=== PATIENT | female | born 1950 | race Caucasian/White ===

== ENCOUNTER 2019-04-19 12:20 | Emergency (ER) | payer MEDICARE ==
--- NOTE | 2019-04-19 13:52 | ED ---
General Adult HPI - General Chief complaint: Fall Stated complaint: fall, facial injury Time Seen by Provider: 04/19/19 12:30 Source: patient, EMS Mode of arrival: EMS Limitations: no limitations - History of Present Illness Initial comments: Dictation was produced using Snapflow dictation software. please excuse any grammatical, word or spelling errors. Chief Complaint: 68-year-old female presents with head injury after fall. History of Present Illness: An is a 68-year-old female she presents with head injury after fall. Patient states she was walking on sidewalk. It was a brick paved road when she tripped over on uneven brick. Patient was around the library when she was told to come to the emergency department for evaluation. Patient had any blood thinners. She does complain of some soreness around the lateral right eyebrow. Denies any neck pain. The ROS documented in this emergency department record has been reviewed and confirmed by me. Those systems with pertinent positive or negative responses have been documented in the HPI. All other systems are other negative and/or noncontributory. PHYSICAL EXAM: General Impression: Alert and oriented x3, not in acute distress HEENT: Small 5 x 5 mm ecchymoses over the right lateral eyebrow, extra-ocular movements intact, pupils equal and reactive to light bilaterally, mucous membranes moist. Cardiovascular: Heart regular rate and rhythm, S1&S2 audible, no murmurs, rubs or gallops Chest: Lungs clear to auscultation bilaterally, no rhonchi, no wheeze, no rales Abdomen: Bowel sounds present, abdomen soft, non-tender, non-distended, no organomegaly Musculoskeletal: Pulses present and equal in all extremities, no peripheral edema Motor: no focal deficits noted Neurological: CN II-XII grossly intact, no focal motor or sensory deficits noted Skin: Intact with no visualized rashes Psych: Normal affect and mood ED course: 68 Old female presents with head trauma after mechanical fall. Patient is well-appearing at this time. She has small very little evidence of head trauma on external examination. Vital signs upon arrival are within accept able limits. Computed tomography scan of the head and C-spine obtained showing no acute processes. Patient reevaluated at bedside currently stable medical condition. Patient has no pain at this time. She has no neuro deficits. She'll be discharged with instruction to follow up with primary care physician. Prevacid discussed. Patient understandable and agreeable with disposition plan - Related Data Home Medications Medication Instructions Recorded Confirmed Atorvastatin Calcium [Lipitor] 40 mg PO TH 04/19/19 04/19/19 Thyroid,Pork [[place] Thyroid] 15 mg PO DAILY 04/19/19 04/19/19 Allergies Allergy/AdvReac Type Severity Reaction Status Date / Time bee pollen Allergy Unknown Verified 04/19/19 14:51 egg yolk Allergy Rash/Hives Verified 04/19/19 14:51 procaine Allergy Unknown Verified 04/19/19 14:51 wheat AdvReac Unknown Verified 04/19/19 14:51 Review of Systems ROS Statement: Those systems with pertinent positive or pertinent negative responses have been documented in the HPI. ROS Other: All systems not noted in ROS Statement are negative. Past Medical History Past Medical History: Hyperlipidemia, Thyroid Disorder History of Any Multi-Drug Resistant Organisms: None Reported Past Surgical History: Tonsillectomy Past Psychological History: No Psychological Hx Reported Smoking Status: Never smoker Past Alcohol Use History: None Reported Past Drug Use History: None Reported General Exam Limitations: no limitations Course Vital Signs 04/19/19 12:28 Temperature 98.3 F Pulse Rate 73 Respiratory 18 Rate Blood Pressure 169/91 O2 Sat by Pulse 98 Oximetry Disposition Clinical Impression: Head contusion Disposition: HOME SELF-CARE Condition: Good Instructions (If sedation given, give patient instructions): Fall Prevention for Older Adults (ED) Is patient prescribed a controlled substance at d/c from ED?: No Referrals: Idania Case DO [Primary Care Provider] - 1-2 days Time of Disposition: 15:08
--- NOTE | 2019-04-19 14:49 | CT ---
EXAMINATION TYPE: CT brain trace carlson DATE OF EXAM: 04/19/2019 COMPARISON: None HISTORY: 68-year-old female with pain after Fall today with Right supra orbital injury CT DLP: 1213.8 mGycm Automated exposure control for dose reduction was used. Technique: Examination of the head was done in axial plane without intravenous contrast. Coronal and sagittal reconstructions performed. CT of the cervical spine was obtained in axial plane without intravenous injection of contrast mater ial. Coronal and sagittal reformatted images were obtained from the axial views for evaluation of f ractures, spinal alignment and canal. FINDINGS: Head: There is no evidence of acute intracranial hemorrhage, acute ischemic changes, mass, mass-effect, or extra-axial fluid collection. There is no effacement of cerebral sulci or basal subarachnoid cister ns. There is no hydrocephalus. There is no midline shift. Yo-white matter distinction is preserv ed. Paranasal sinuses and mastoid air cells well pneumatized. Orbits and globes are intact. No calvarial fracture. Cervical spine: No cranial cervical junction of the body, predental space widening, or prevertebral soft tissue swell ing. Degenerative changes of the C1 dens articulation. Straightening of the normal cervical lordosis. Grade 1 anterolisthesis at C3-C4 and C7-T1. Moderate to advanced discussion plate degenerative change mid to lower cervical spine. Additional sca ttered facet and uncovertebral joint arthropathy. No acute fracture of the cervical spine. Sagittal and coronal reformatted images confirm above findings. COMBINED IMPRESSION: 1. No acute intracranial abnormality seen. 2. No acute fracture of the cervical spine. Moderate spondylotic change with degenerative grade 1 ant erolisthesis of C3-C4 and C7-T1.
[2019-04-19 15:33] VITALS: BP 137/73; PULSE 59; RESP 16; TEMP 98.8
== END 2019-04-19 15:59 | disposition home or self-care (01) ==
LOC: EC 12:20
DX: S00.93XA Contusion of unspecified part of head, initial encounter (principal); S00.11XA Contusion of right eyelid and periocular area, initial encounter; Z91.018 Allergy to other foods; Z91.030 Bee allergy status; W01.198A Fall on same level from slipping, tripping and stumbling with subsequent striking against other object, initial encounter; Y93.01 Activity, walking, marching and hiking; Y92.89 Other specified places as the place of occurrence of the external cause
CPT/HCPCS: 70450; 72125; 99284

== ENCOUNTER 2022-02-23 16:33 | Inpatient (IN) | payer MEDICARE, OTHER ==
[2022-02-23 17:13] LABS: Basophils # (A) 0.1 k/uL (0-0.2); Basophils % (A) 1 %; Eosinophils # (A) 0.2 k/uL (0-0.7); Eosinophils % (A) 3 %; HCT 43.4 % (34.0-46.0); HGB 13.7 gm/dL (11.4-16.0); Lymphocytes % (A) 27 %; MCH 29.8 pg (25.0-35.0); MCHC 31.6 g/dL (31.0-37.0); MCV 94.2 fL (80.0-100.0); Mean Platelet Volume 8.4; Monocytes # (A) 0.3 k/uL (0-1.0); Monocytes % (A) 4 %; Neutrophils # (A) 4.5 k/uL (1.3-7.7); Neutrophils % (A) 64 %; Platelet Count 186 k/uL (150-450); RBC 4.61 m/uL (3.80-5.40); RDW 13.5 % (11.5-15.5); WBC 7.1 k/uL (3.8-10.6)
--- NOTE | 2022-02-23 17:23 | ED ---
Arrhythmia/Palpitations HPI - General Chief Complaint: Arrhythmia/Palpitations Stated Complaint: Low heart rate, Abnormal EKG, From Sugar Time Seen by Provider: 02/23/22 16:40 Source: patient Mode of arrival: ambulatory Limitations: no limitations - History of Present Illness Initial Comments: 71-year-old female presents the emergency department from her primary care office. States that she was seeing Dr. Wooten in office today to get the results of her echo that was performed 2 weeks ago. States that she's been having some fatigue and therefore an EKG and echo was ordered. At her echo appointment they did find that she had a low heart rate however they completed her echo and sent her home. Today in office Dr. Wooten did an EKG which demonstrated complete heart block. Patient does not take any AV ai blocking agents. She denies chest pain. No history of coronary disease. Does admit to fatigue and presyncope. No other alleviating, precipitating or modifying factors - Related Data Home Medications Medication Instructions Recorded Confirmed Atorvastatin Calcium [Lipitor] 40 mg PO TH@2100 04/19/19 02/23/22 Thyroid,Pork [[place] Thyroid] 15 mg PO BID@0600,1800 04/19/19 02/23/22 Thyroid,Pork [[place] Thyroid] 30 mg PO DAILY@1200 02/23/22 02/23/22 Previous Rx's Medication Instructions Recorded Colchicine [Colcrys] 0.6 mg PO BID #60 each 02/27/22 Allergies Allergy/AdvReac Type Severity Reaction Status Date / Time bee pollen Allergy Unknown Verified 02/23/22 16:41 egg yolk Allergy Rash/Hives Verified 02/23/22 16:41 procaine Allergy Unknown Verified 02/23/22 16:41 wheat AdvReac Unknown Verified 02/23/22 16:41 Review of Systems ROS Statement: Those systems with pertinent positive or pertinent negative responses have been documented in the HPI. ROS Other: All systems not noted in ROS Statement are negative. Past Medical History Past Medical History: Hyperlipidemia, Thyroid Disorder History of Any Multi-Drug Resistant Organisms: None Reported Past Surgical History: Tonsillectomy Past Psychological History: No Psychological Hx Reported Past Alcohol Use History: None Reported Past Drug Use History: None Reported - Past Family History Father Family Medical History: CVA/TIA, Hyperlipidemia Mother Family Medical History: Diabetes Mellitus, Respiratory Disorder General Exam Limitations: no limitations General appearance: alert, in no apparent distress Head exam: Present: atraumatic, normocephalic, normal inspection Eye exam: Present: normal appearance, PERRL, EOMI. Absent: scleral icterus, conjunctival injection, periorbital swelling ENT exam: Present: normal exam, mucous membranes moist Neck exam: Present: normal inspection. Absent: tenderness, meningismus, lymphadenopathy Respiratory exam: Present: normal lung sounds bilaterally. Absent: respiratory distress, wheezes, rales, rhonchi, stridor Cardiovascular Exam: Present: bradycardia, irregular rhythm, normal heart sounds. Absent: systolic murmur, diastolic murmur, rubs, gallop, clicks GI/Abdominal exam: Present: soft, normal bowel sounds. Absent: distended, tenderness, guarding, rebound, rigid Extremities exam: Present: normal inspection, full ROM, normal capillary refill. Absent: tenderness, pedal edema, joint swelling, calf tenderness Back exam: Present: normal inspection Neurological exam: Present: alert, oriented X3, CN II-XII intact Psychiatric exam: Present: normal affect, normal mood Skin exam: Present: warm, dry, intact, normal color. Absent: rash Course Vital Signs 02/23/22 02/23/22 02/23/22 16:38 17:14 17:41 Temperature 98.0 F Pulse Rate 43 L 40 L Pulse Rate [ 41 L Slate Roofer Helper ] Respiratory 18 18 Rate Blood Pressure 174/67 148/61 Blood Pressure [Right Arm] O2 Sat by Pulse 98 96 Oximetry 02/23/22 02/23/22 02/23/22 18:30 18:52 19:15 Temperature 98.1 F Pulse Rate 39 L 39 L Pulse Rate [ 45 L [place] Roofer Helper ] Respiratory 18 16 12 Rate Blood Pressure 171/74 168/80 Blood Pressure 160/66 [Right Arm] O2 Sat by Pulse 95 96 Oximetry 02/23/22 02/23/22 19:38 20:00 Temperature Pulse Rate 39 L Pulse Rate [ 41 L Slate Roofer Helper ] Respiratory 16 Rate Blood Pressure 175/77 Blood Pressure [Right Arm] O2 Sat by Pulse 94 L Oximetry - Reevaluation(s) Reevaluation #1: 02/23/22 17:[address] Marin - will be admitted to ICU EKG Findings - EKG Comments: EKG Findings:: EKG demonstrates a sinus bradycardia with a rate of 39. There is complete AV block. QRS 78. QTC of 450. No ST segment elevations or depressions Medical Decision Making - Medical Decision Making Upon arrival the patient was placed into room 17. Thorough history and physical exam was performed. Patient placed on continuous pulse ox and cardiac monitoring. 12-lead EKG is obtained which demonstrates third-degree heart block. Laboratory studies are obtained which are within normal limits. Did call and speak with Dr. Marin. Patient is medically stable at this time and therefore will be admitted to ICU with cardiac pads in place in the event that the patient needs to be transcutaneously paced. We'll make the patient nothing by mouth for anticipated pacemaker placement in the morning. Spoke with Dr. Lane who agreed to admit the patient Patient is aware of the treatment plan and was taken to the ICU in stable condition - Lab Data Result diagrams: 02/25/22 07:45 02/25/22 07:45 Lab Results 02/23/22 02/23/22 02/23/22 Range/Units 17:04 17:04 17:04 WBC 7.1 (3.8-10.6) k/uL RBC 4.61 (3.80-5.40) m/uL Hgb 13.7 (11.4-16.0) gm/dL Hct 43.4 (34.0-46.0) % MCV 94.2 (80.0-100.0) fL MCH 29.8 (25.0-35.0) pg MCHC 31.6 (31.0-37.0) g/dL RDW 13.5 (11.5-15.5) % Plt Count 186 (150-450) k/uL MPV 8.4 Neutrophils % 64 % Lymphocytes % 27 % Monocytes % 4 % Eosinophils % 3 % Basophils % 1 % Neutrophils # 4.5 (1.3-7.7) k/uL Lymphocytes # 2.0 (1.0-4.8) k/uL Monocytes # 0.3 (0-1.0) k/uL Eosinophils # 0.2 (0-0.7) k/uL Basophils # 0.1 (0-0.2) k/uL PT 10.7 (9.0-12.0) sec INR 1.0 (<1.2) APTT 22.1 (22.0-30.0) sec Sodium 138 (137-145) mmol/L Potassium 4.8 (3.5-5.1) mmol/L Chloride 107 (98-107) mmol/L Carbon Dioxide 27 (22-30) mmol/L Anion Gap 4 mmol/L BUN 13 (7-17) mg/dL Creatinine 0.75 (0.52-1.04) mg/dL Est GFR (CKD-EPI)AfAm >90 (>60 ml/min/1.73 sqM) Est GFR (CKD-EPI)NonAf 81 (>60 ml/min/1.73 sqM) Glucose 81 (74-99) mg/dL Calcium 9.8 (8.4-10.2) mg/dL Magnesium 2.1 (1.6-2.3) mg/dL Total Bilirubin 1.8 H (0.2-1.3) mg/dL AST 48 H (14-36) U/L ALT 54 H (4-34) U/L Alkaline Phosphatase 104 (38-126) U/L Troponin I (0.000-0.034) ng/mL Total Protein 6.0 L (6.3-8.2) g/dL Albumin 3.8 (3.5-5.0) g/dL TSH 0.476 (0.465-4.680) mIU/L 02/23/22 Range/Units 17:04 WBC (3.8-10.6) k/uL RBC (3.80-5.40) m/uL Hgb (11.4-16.0) gm/dL Hct (34.0-46.0) % MCV (80.0-100.0) fL MCH (25.0-35.0) pg MCHC (31.0-37.0) g/dL RDW (11.5-15.5) % Plt Count (150-450) k/uL MPV Neutrophils % % Lymphocytes % % Monocytes % % Eosinophils % % Basophils % % Neutrophils # (1.3-7.7) k/uL Lymphocytes # (1.0-4.8) k/uL Monocytes # (0-1.0) k/uL Eosinophils # (0-0.7) k/uL Basophils # (0-0.2) k/uL PT (9.0-12.0) sec INR (<1.2) APTT (22.0-30.0) sec Sodium (137-145) mmol/L Potassium (3.5-5.1) mmol/L Chloride (98-107) mmol/L Carbon Dioxide (22-30) mmol/L Anion Gap mmol/L BUN (7-17) mg/dL Creatinine (0.52-1.04) mg/dL Est GFR (CKD-EPI)AfAm (>60 ml/min/1.73 sqM) Est GFR (CKD-EPI)NonAf (>60 ml/min/1.73 sqM) Glucose (74-99) mg/dL Calcium (8.4-10.2) mg/dL Magnesium (1.6-2.3) mg/dL Total Bilirubin (0.2-1.3) mg/dL AST (14-36) U/L ALT (4-34) U/L Alkaline Phosphatase (38-126) U/L Troponin I <0.012 (0.000-0.034) ng/mL Total Protein (6.3-8.2) g/dL Albumin (3.5-5.0) g/dL TSH (0.465-4.680) mIU/L Critical Care Time Critical Care Time: Yes Critical Care Time: 35 minutes Disposition Clinical Impression: Third degree AV block Disposition: ADMITTED IP TO THIS [facility] Condition: Serious Is patient prescribed a controlled substance at d/c from ED?: No Time of Disposition: 17:59 Decision to Admit Reason: Admit from EC Decision Date: 02/23/22 Decision Time: 17:59
[2022-02-23 17:29] LABS: Partial Thromboplastin Time 22.1 sec (22.0-30.0); Prothrombin Time 10.7 sec (9.0-12.0)
[2022-02-23 17:42] LABS: ALT 54 U/L (4-34); AST 48 U/L (14-36); African American GFR (CKD) >90 (>60 ml/min/1.73 sqM); Albumin 3.8 g/dL (3.5-5.0); Alkaline Phosphatase 104 U/L (38-126); Anion Gap 4 mmol/L; Blood Urea Nitrogen 13 mg/dL (7-17); Calcium 9.8 mg/dL (8.4-10.2); Carbon Dioxide 27 mmol/L (22-30); Chloride 107 mmol/L (98-107); Glucose 81 mg/dL (74-99); Magnesium 2.1 mg/dL (1.6-2.3); Non-African American GFR(CKD) 81 (>60 ml/min/1.73 sqM); Potassium 4.8 mmol/L (3.5-5.1); Sodium 138 mmol/L (137-145); Total Bilirubin 1.8 mg/dL (0.2-1.3)
[2022-02-23] MEDS ORDERED: NALOXONE 0.4 MG/ML 1 ML VIAL IV PRN (18:00)
--- NOTE | 2022-02-23 18:11 | XR ---
EXAMINATION: XR chest 2V DATE AND TIME: 02/23/2022 5:36 PM CLINICAL INDICATION: dysrhythmia TECHNIQUE: Departmental protocol COMPARISON: None FINDINGS: The lungs are clear. Minimal right pleural effusion. No left pleural effusion. No pneumothorax. The cardiac silhouette appears top normal. The remainder of the mediastinal silhouette is unremarkabl e. The skeletal structures and soft tissues are negative for acute findings. IMPRESSION: Minimal right pleural effusion.
[2022-02-23 20:28] LABS: Glucose,Whole Blood 76 mg/dL (70-110)
[2022-02-23] MEDS ORDERED: ATORVASTATIN 40 MG TAB PO SCH (21:00)
[2022-02-24] MEDS: THYROID, PORK 30 MG TAB PO SCH ×3 (06:00→18:53)
[2022-02-24] MEDS ORDERED: ceFAZolin 1 GM in SODIUM CHLORIDE 0.9% IRRIG BTL 250 ML IRRIGATION PRN (07:00)
[2022-02-24 07:02] LABS: Basophils # (A) 0.1 k/uL (0-0.2); Basophils % (A) 1 %; Eosinophils # (A) 0.3 k/uL (0-0.7); Eosinophils % (A) 5 %; HCT 40.7 % (34.0-46.0); HGB 13.4 gm/dL (11.4-16.0); Lymphocytes # (A) 2.1 k/uL (1.0-4.8); Lymphocytes % (A) 38 %; MCH 31.4 pg (25.0-35.0); MCHC 32.9 g/dL (31.0-37.0); MCV 95.4 fL (80.0-100.0); Mean Platelet Volume 8.2; Monocytes # (A) 0.2 k/uL (0-1.0); Monocytes % (A) 4 %; Neutrophils # (A) 2.8 k/uL (1.3-7.7); Neutrophils % (A) 51 %; Platelet Count 172 k/uL (150-450); RBC 4.27 m/uL (3.80-5.40); RDW 13.6 % (11.5-15.5); WBC 5.5 k/uL (3.8-10.6)
--- NOTE | 2022-02-24 07:17 | P.CRDCN ---
History of Present Illness Consult date: 02/24/22 History of present illness: History of Present Illness: The patient is a 71-year-old female with known history of hyperlipidemia who for the last few weeks has been complaining of progressive fatigue, lack of energy and was found to be bradycardic. She underwent an echocardiogram 2 weeks ago and her heart rate was slow at that time according to her. She was seen yes terday for follow-up and was found to be in complete heart block and referred to the emergency room. The patient has symptoms of dizziness and presyncope, no chest discomfort but she has been complaining of progressive fatigue and dyspnea on exertion and had episode of peripheral edema. She has no prior cardiac history of myocardial infarction or CHF. She had peripheral edema in the last few weeks but no clear PND or orthopnea. She has no history of syncope. She is on no negative chronotropic drugs and her TSH was normal on presentation. In the emergency room she was noted to be in complete heart block with ventricular rate in the mid 30s and stable blood pressure. Medications: [place] Thyroid, Lipitor, aspirin Review of Systems: Respiratory: She has been complaining of recent dyspnea and fatigue GI: No nausea or vomiting . No history of peptic ulcer disease. No recent GI bleed. : No hematuria or dysuria. Nervous System: No stroke or seizure. Physical Examination: 71-year-old female, alert and oriented no apparent distress,Blood pressure 160/70, Heart rate 38 Head: Normocephalic. Eyes: Sclerae nonicteric. Neck: Good carotid upstroke, no bruit, no jugular venous distention. Lungs: Clear to auscultation. Heart: Bradycardic, regular, S1-S2, no S3, no rub. No murmur. Abdomen: Soft nontender, positive bowel sounds no organomegaly. Extremities: No edema, intact distal pulses. Labs: Hemoglobin 13.4, BUN 13, creatinine 0.75, potassium 4.8. Troponin less than 0.012. Total bilirubin 1.8, AST 48, ALT 54. TSH 0.476. No infiltrate with minimal right-sided pleural effusion EKG: Sinus mechanism with complete A-V dissociation with a ventricular rate of 39 and narrow complex QRS Impression: 1. Complete heart block, going on for maybe 2 weeks according to the patient 2. History of hyperlipidemia 3. History of hypothyroidism, normal TSH 4. Elevated bilirubin of unknown duration, no abdominal pain Plan: 1. Obtain an echocardiogram with Doppler 2. Proceed with permanent pacemaker implantation 3. The rationale behind the pacemaker and the risks and the complications were discussed with the patient 4. Depending on her progress further recommendations will be made 5. Thank you for this consult we will follow with you. Past Medical History Past Medical History: Hyperlipidemia, Thyroid Disorder Additional Past Medical History / Comment(s): Dupuytrens Contractions History of Any Multi-Drug Resistant Organisms: None Reported Past Surgical History: Tonsillectomy Past Anesthesia/Blood Transfusion Reactions: No Reported Reaction Past Psychological History: No Psychological Hx Reported Past Alcohol Use History: None Reported Past Drug Use History: None Reported - Past Family History Father Family Medical History: CVA/TIA, Hyperlipidemia Mother Family Medical History: Diabetes Mellitus, Respiratory Disorder Medications and Allergies Home Medications Medication Instructions Recorded Confirmed Type Atorvastatin Calcium [Lipitor] 40 mg PO TH@2100 04/19/19 02/23/22 History Thyroid,Pork [[place] Thyroid] 15 mg PO BID@0600,1800 04/19/19 02/23/22 History Aspirin EC [Ecotrin Low Dose] 81 mg PO DAILY 02/23/22 02/23/22 History Thyroid,Pork [[place] Thyroid] 30 mg PO DAILY@1200 02/23/22 02/23/22 History Allergies Allergy/AdvReac Type Severity Reaction Status Date / Time bee pollen Allergy Unknown Verified 02/23/22 16:41 egg yolk Allergy Rash/Hives Verified 02/23/22 16:41 procaine Allergy Unknown Verified 02/23/22 16:41 wheat AdvReac Unknown Verified 02/23/22 16:41 Physical Exam Vitals: Vital Signs Temp Pulse Pulse Resp BP BP Pulse Ox 02/24/22 07:00 36 L 13 139/65 95 02/24/22 06:30 37 L 12 143/73 95 02/24/22 06:00 36 L 12 138/66 94 L 02/24/22 05:30 37 L 12 129/67 95 02/24/22 05:00 37 L 11 L 149/63 95 02/24/22 04:30 36 L 17 132/64 95 02/24/22 04:00 98.1 F 38 L 12 126/60 95 02/24/22 03:30 39 L 12 121/68 94 L 02/24/22 03:00 40 L 15 137/57 93 L 02/24/22 02:30 40 L 12 121/65 94 L 02/24/22 02:00 42 L 16 127/53 91 L 02/24/22 01:30 42 L 11 L 131/56 94 L 02/24/22 01:00 41 L 12 135/60 95 02/24/22 00:30 41 L 12 150/57 95 02/24/22 00:00 98.1 F 40 L 41 L 12 125/59 95 02/23/22 23:30 42 L 12 171/73 95 02/23/22 23:00 39 L 8 L 152/102 95 02/23/22 22:30 41 L 12 173/68 95 02/23/22 22:00 40 L 12 151/72 96 02/23/22 21:30 38 L 12 127/64 96 02/23/22 21:00 39 L 11 L 160/66 96 02/23/22 20:30 98.6 F 39 L 12 160/62 96 02/23/22 20:27 38 L 12 97 02/23/22 20:00 41 L 02/23/22 19:38 39 L 16 175/77 94 L 02/23/22 19:15 98.1 F 45 L 12 160/66 02/23/22 18:52 39 L 16 168/80 96 02/23/22 18:30 39 L 18 171/74 95 02/23/22 17:41 41 L 02/23/22 17:14 40 L 18 148/61 96 02/23/22 16:38 98.0 F 43 L 18 174/67 98 Intake and Output 02/23/22 02/24/22 02/24/22 22:59 06:59 14:59 Intake Total 300 Output Total 0 650 0 Balance 300 -650 0 Intake: Oral 300 Output: Urine 0 650 0 Other: Voiding Method Bedside Commode Bedside Commode Weight 56.245 kg 59.4 kg Results 02/24/22 06:27 02/23/22 17:04 Cardiac Enzymes 02/23/22 02/23/22 Range/Units 17:04 17:04 AST 48 H (14-36) U/L Troponin I <0.012 (0.000-0.034) ng/mL Coagulation 02/23/22 Range/Units 17:04 PT 10.7 (9.0-12.0) sec APTT 22.1 (22.0-30.0) sec CBC 02/23/22 02/24/22 Range/Units 17:04 06:27 WBC 7.1 5.5 (3.8-10.6) k/uL RBC 4.61 4.27 (3.80-5.40) m/uL Hgb 13.7 13.4 (11.4-16.0) gm/dL Hct 43.4 40.7 (34.0-46.0) % Plt Count 186 172 (150-450) k/uL Comprehensive Metabolic Panel 02/23/22 Range/Units 17:04 Sodium 138 (137-145) mmol/L Potassium 4.8 (3.5-5.1) mmol/L Chloride 107 (98-107) mmol/L Carbon Dioxide 27 (22-30) mmol/L BUN 13 (7-17) mg/dL Creatinine 0.75 (0.52-1.04) mg/dL Glucose 81 (74-99) mg/dL Calcium 9.8 (8.4-10.2) mg/dL AST 48 H (14-36) U/L ALT 54 H (4-34) U/L Alkaline Phosphatase 104 (38-126) U/L Total Protein 6.0 L (6.3-8.2) g/dL Albumin 3.8 (3.5-5.0) g/dL Current Medications Generic Name Dose Route Start Last Admin Trade Name Freq PRN Reason Stop Dose Admin Aspirin 81 mg 02/24/22 09:00 Aspirin 81 Mg PO DAILY [facility] Atorvastatin Calcium 40 mg 02/23/22 21:00 02/23/22 22:39 Atorvastatin 40 Mg Tab PO 40 mg TH@2100 [place] Administration Naloxone HCl 0.2 mg 02/23/22 18:00 Naloxone 0.4 Mg/Ml 1 Ml Vial IV Q2M PRN Opioid Reversal Thyroid 15 mg 02/24/22 06:00 02/24/22 06:00 Thyroid, Pork 30 Mg Tab PO 15 mg BID@0600,1800 [place] Administration Thyroid 30 mg 02/24/22 12:00 Thyroid, [place]ork 30 Mg Tab PO DAILY@1200 [place] Intake and Output 02/23/22 02/24/22 02/24/22 22:59 06:59 14:59 Intake Total 300 Output Total 0 650 0 Balance 300 -650 0 Intake: Oral 300 Output: Urine 0 650 0 Other: Voiding Method Bedside Commode Bedside Commode Weight 56.245 kg 59.4 kg 02/24/22 06:27 02/23/22 17:04
[2022-02-24 07:23] LABS: African American GFR (CKD) >90 (>60 ml/min/1.73 sqM); Anion Gap 2 mmol/L; Blood Urea Nitrogen 12 mg/dL (7-17); Calcium 9.2 mg/dL (8.4-10.2); Carbon Dioxide 26 mmol/L (22-30); Chloride 109 mmol/L (98-107); Glucose 84 mg/dL (74-99); Non-African American GFR(CKD) 88 (>60 ml/min/1.73 sqM); Potassium 4.4 mmol/L (3.5-5.1); Sodium 137 mmol/L (137-145)
[2022-02-24] MEDS ORDERED: SODIUM CHLORIDE 0.9% 1,000 ML IV SCH (09:00)
[2022-02-24] MEDS: ASPIRIN 81 MG PO SCH ×2 (09:25→14:39)
[2022-02-24] MEDS: SODIUM CHLORIDE 0.9% 1,000 ML IV SCH (09:25)
[2022-02-24] MEDS ORDERED: IV FLUID CONTINUATION 975 ML IV ONE (10:30)
[2022-02-24] MEDS ORDERED: IOPAMIDOL-370 50ML BTL INJ ONE (10:30)
--- NOTE | 2022-02-24 10:50 | CA ---
Transthoracic Echo Report Name: Gino Austin Age: 71 Gender: F : 1950 Exam Date: 02/24/2022 08:20 Exam Location: [facility] Ht (in): 67 Wt (lb): 130 Ordering Physician: Pablo Pak DO Attending/Referring Phys: Sales And Distribution Clerk Madelaine Gracia RDCS Procedure CPT: Indications: chb Cardiac Hx: Technical Quality: Fair Contrast 1: Total Dose (mL): Contrast 2: Total Dose (mL): MEASUREMENTS (Male / Female) Normal Values 2D ECHO LV Diastolic Diameter PLAX 4.5 cm 4.2 - 5.9 / 3.9 - 5.3 cm LV Systolic Diameter PLAX 3.4 cm IVS Diastolic Thickness 1.1 cm 0.6 - 1.0 / 0.6 - 0.9 cm LVPW Diastolic Thickness 1.4 cm 0.6 - 1.0 / 0.6 - 0.9 cm LV Relative Wall Thickness 0.6 LA Volume 73.1 cm??? 18 - 58 / 22 - 52 cm??? M-MODE Aortic Root Diameter MM 2.6 cm LA Systolic Diameter MM 4.1 cm LA Ao Ratio MM 1.6 MV E Point Septal Separation 0.2 cm AV Cusp Separation MM 1.6 cm DOPPLER MV Area PHT 3.2 cm??? Mitral E Point Velocity 72.0 cm/s Mitral A Point Velocity 90.9 cm/s Mitral E to A Ratio 0.8 MV Deceleration Time 234.9 ms MV E' Velocity 8.0 cm/s Mitral E to MV E' Ratio 9.0 TR Peak Velocity 298.0 cm/s TR Peak Gradient 35.5 mmHg Right Ventricular Systolic Press 39.4 mmHg FINDINGS Left Ventricle Left ventricular ejection fraction is estimated at 55%. Right Ventricle Normal right ventricular size and function. Mild pulmonary hypertension. Right Atrium Normal right atrial size. Left Atrium Mildly dilated left atrium Mitral Valve Structurally normal mitral valve. Mild mitral regurgitation. Aortic Valve Trileaflet aortic valve. Tricuspid Valve Structurally normal tricuspid valve. Pulmonic Valve Structurally normal pulmonic valve. Pericardium Normal pericardium. Aorta Normal size aortic root and proximal ascending aorta. CONCLUSIONS Normal left ventricular ejection fraction 55% RVSP 39 Mild mitral regurgitation No pericardial effusion Previewed by: Dr. Ted Salazar DO (Electronically Signed) Final Date: 24 February 2022 10:49
[2022-02-24] MEDS: MIDAZOLAM 2 MG/2 ML VIAL IVP ONE ×2 (11:03→11:07)
[2022-02-24] MEDS: LIDOCAINE 1% INJ 10MG/ML (30 ML VIAL-PF) SQ ONE ×2 (11:12→11:20)
[2022-02-24] MEDS ORDERED: LIDOCAINE 1% INJ 10MG/ML (30 ML VIAL-PF) SQ ONE (11:33)
--- NOTE | 2022-02-24 13:13 | P.PCN ---
Description of Procedure: Procedure(s): Dual Chamber Permanent Pacemaker Implantation; Cardiac Fluoroscopy Indications: Sick sinus syndrome with complete heart block and a heart rate of 38 bpm with symptoms of dizziness and lightheadedness syncope and near syncope. Preprocedure Diagnosis: Complete heart block with syncope/near syncope Postprocedure Diagnosis: Complete heart block with syncope/near syncope Procedure Details: The risks, benefits, complications, treatment options, and expected outcomes were discussed with the patient. The patient concurred with the proposed plan, giving informed consent. Patient was prepped and draped in the usual strict sterile fashion. After the antibiotic was completely infused, 20 mL of 1% lidocaine was infiltrated into the area just medial to the left deltopectoral groove. Using a micropuncture needle technique with fluoroscopic guidance is single access was obtained into the axillary vein. I had difficulty with a second axis and therefore 2 wires were advanced under to access fluoroscopic guidance in In the right atrium and exchanged for a second sheath.. Using a #15 scalpel, an incision was made. The incision was extended to the pre-pectoral fascia using blunt dissection. Using cautery and dissection a pocket was made. A guidewire was advanced to the heart underfluoroscopic guidance. Sheath was advanced over the guidewire. A guidewire was retained, and dilator was removed. A pacemaker lead was advanced to the heart underfluoroscopic guidance. The sheath was peeled away. The lead was fixated to the right ventricular apical septum. Appropriate sensing and thresholds were obtained. No diaphragmatic pacing occurred at 10 V and 1.5 ms. As second sheath was advanced over the guidewire. The dilator and guidewire were removed. A pacemaker lead was advanced to the heart underfluoroscopic guidance. The sheath was peeled away. The lead was fixated to the right atrial appendage. Appropriate sensing and thresholds were obtained. No diaphragmatic pacing occurred at 10 V and 1.5 ms. Both were active leads and both the leads were screwed and and secured to the underlying muscle using 2 separate 0 silk sutures. The lead paronychias were checked and hemostasis was ensured. A left pre-pectoral pocket was fashioned.The pocket was irrigated with antibiotic I left an antibiotic sponge in the pocket for 25 minutes. The leads were attached to the generator. The system was placed in the pocket. The pacemaker and lead system were visualized under fluoroscopy. Appropriate redundancy/slacken the leads were noted. The pins of the leads were beyond the set screws. The pulse generator was also secured to the underlying muscle using a 0 silk suture. Hemostasis was reverified. There was some oozing and D-Stat was administered. The pocket was then closed with 2.0 and 3.0 Vicryl. Steri-Strips, a gauze dressing, and operative site were placed. Pacemaker Hr Consultant [employer] model [employer] . 2272 serial number [id number] the atrial lead model tendril STS 2088 TC serial number [place] [id number], ventricular lead women's health care nurse practitioner [employer] model tendril STS 2088 TC serial number [id number]. The atrial threshold was 0.5 V at 0.4 ms and the P waves 2.4 mV. Lead impedance was 550 ohms. The ventricular threshold was 0.5 V R waves were 5.6 mV and lead impedance was 630 ohms. The pacemaker was set at a lower rate of 50 high rate of 110 BPM the mode was DDD AV paced delay was 200 ms. AV sensed delay was 180 ms. Estimated Blood Loss: Less than 50 ml. Complications: None; patient tolerated the procedure well. Disposition: ICU - hemodynamically stable. Condition: Stable. No complications. Patient will be discharged in 24 hours after device check and chest x-ray. I spoke to the patient in detail and also spoke to her nephew Dr. Alan christine [facility] who was the person she wanted me to talk to. Patient will be sent back to the ICU and I expect she will be discharged tomorrow if she remains stable and after review of chest x-ray and device parameters. We will do a chest x-ray today as well. She will follow-up with the Dr. Heaton Moderate conscious sedation time was 110 minutes. Patient was administered Versed. Oxygen saturation hemodynamics and EKG were monitored closely
[2022-02-24] MEDS ORDERED: ACETAMINOPHEN TAB 325 MG TAB PO PRN (13:15)
[2022-02-24] MEDS: amLODIPine 5 MG TAB PO SCH (14:39)
[2022-02-24] MEDS: ACETAMINOPHEN TAB 325 MG TAB PO PRN ×2 (14:43→23:50)
--- NOTE | 2022-02-24 15:47 | XR ---
EXAMINATION TYPE: XR chest 1V portable DATE OF EXAM: 02/24/2022 COMPARISON: Chest x-ray 02/23/2022 HISTORY: Lead placement check TECHNIQUE: Single frontal view of the chest is obtained. FINDINGS: There is been interval placement of a generator in left pectoral region, there are leads i n right atrium and ventricle. No evident pneumothorax or pleural effusion. No other interval change. IMPRESSION: No evident complication status post lead placement.
--- NOTE | 2022-02-24 22:10 | P.HPIM ---
History of Present Illness H&P Date: 02/24/22 Pt is a 71-year-old female with PMH of hyperlipidemia who was recommended to come into the hospital by her PCP due to heart block. Pt complains she has been experiencing dizziness, fatigue over the past few months. She states more recently she started to notice dyspnea on exertion and lower extremity edema so saw her PCP. She underwent an echocardiogram 2 weeks ago and her heart rate was slow at that time according to her. She was seen yesterday for follow-up and was found to be in complete heart block and referred to the emergency room. The patient has symptoms of dizziness and presyncope, no chest discomfort. TSH was normal on presentation. In the emergency room she was noted to be in complete heart block with ventricular rate in the mid 30s and stable blood pressure. Review of Systems All systems: negative Constitutional: Reports lethargy, Reports weakness, Denies chills, Denies fever Eyes: denies blurred vision, denies pain Ears, nose, mouth and throat: Denies headache, Denies sore throat Cardiovascular: Reports dyspnea on exertion, Reports lightheadedness, Denies chest pain, Denies shortness of breath Respiratory: Denies cough Gastrointestinal: Denies abdominal pain, Denies diarrhea, Denies nausea, Denies vomiting Genitourinary: Denies dysuria, Denies hematuria Musculoskeletal: Denies myalgias Integumentary: Denies pruritus, Denies rash Neurological: Denies numbness, Denies weakness Psychiatric: Denies anxiety, Denies depression Endocrine: Denies fatigue, Denies weight change Past Medical History Past Medical History: Hyperlipidemia, Thyroid Disorder Additional Past Medical History / Comment(s): Dupuytrens Contractions History of Any Multi-Drug Resistant Organisms: None Reported Past Surgical History: Tonsillectomy Past Anesthesia/Blood Transfusion Reactions: No Reported Reaction Past Psychological History: No Psychological Hx Reported Past Alcohol Use History: None Reported Past Drug Use History: None Reported - Past Family History Father Family Medical History: CVA/TIA, Hyperlipidemia Mother Family Medical History: Diabetes Mellitus, Respiratory Disorder Medications and Allergies Home Medications Medication Instructions Recorded Confirmed Type Atorvastatin Calcium [Lipitor] 40 mg PO TH@2100 04/19/19 02/23/22 History Thyroid,Pork [Solen Thyroid] 15 mg PO BID@0600,1800 04/19/19 02/23/22 History Aspirin EC [Ecotrin Low Dose] 81 mg PO DAILY 02/23/22 02/23/22 History Thyroid,Pork [Solen Thyroid] 30 mg PO DAILY@1200 02/23/22 02/23/22 History Allergies Allergy/AdvReac Type Severity Reaction Status Date / Time bee pollen Allergy Unknown Verified 02/23/22 16:41 egg yolk Allergy Rash/Hives Verified 02/23/22 16:41 procaine Allergy Unknown Verified 02/23/22 16:41 wheat AdvReac Unknown Verified 02/23/22 16:41 Physical Exam Vitals: Vital Signs Temp Pulse Pulse Resp BP Pulse Ox 02/24/22 16:30 65 16 158/68 97 02/24/22 16:15 64 18 155/75 95 02/24/22 16:00 98 F 67 18 157/74 96 02/24/22 15:45 58 L 15 146/88 96 02/24/22 15:30 56 L 16 149/70 94 L 02/24/22 15:15 53 L 16 170/89 95 02/24/22 15:00 58 L 16 170/78 96 02/24/22 14:45 61 12 174/81 96 02/24/22 14:30 64 19 160/98 96 02/24/22 14:15 75 18 151/69 97 02/24/22 14:00 59 L 18 142/81 95 02/24/22 13:45 98.2 F 62 16 157/76 95 02/24/22 10:00 37 L 20 161/68 95 02/24/22 09:30 36 L 20 173/82 95 02/24/22 09:00 38 L 20 160/63 97 02/24/22 08:30 37 L 16 144/67 02/24/22 08:00 97.8 F 37 L 15 161/84 94 L 02/24/22 07:30 37 L 20 173/75 02/24/22 07:00 36 L 13 139/65 95 02/24/22 06:30 37 L 12 143/73 95 02/24/22 06:00 36 L 12 138/66 94 L 02/24/22 05:30 37 L 12 129/67 95 02/24/22 05:00 37 L 11 L 149/63 95 02/24/22 04:30 36 L 17 132/64 95 02/24/22 04:00 98.1 F 38 L 12 126/60 95 02/24/22 03:30 39 L 12 121/68 94 L 02/24/22 03:00 40 L 15 137/57 93 L 02/24/22 02:30 40 L 12 121/65 94 L 02/24/22 02:00 42 L 16 127/53 91 L 02/24/22 01:30 42 L 11 L 131/56 94 L 02/24/22 01:00 41 L 12 135/60 95 02/24/22 00:30 41 L 12 150/57 95 02/24/22 00:00 98.1 F 40 L 41 L 12 125/59 95 02/23/22 23:30 42 L 12 171/73 95 02/23/22 23:00 39 L 8 L 152/102 95 02/23/22 22:30 41 L 12 173/68 95 Intake and Output 02/24/22 02/24/22 02/24/22 06:59 14:59 22:59 Intake Total 330 890 Output Total 039 890 1274 Balance -650 130 -310 Intake: IV 180 Intake, IV Titration 150 150 Amount Sodium Chloride 0.9% 1, 150 150 000 ml @ 50 mls/hr IV . Q20H [facility] Rx#:[id number] Oral 740 Output: Urine 236 172 7814 Other: Voiding Method Bedside Commode Bedpan External Catheter Weight 59.4 kg Gen: well developed, well nourished female in NAD HEENT: NC/AT, mucus membranes moist Neck: supple, no JVD or thyromegaly CV: Regular, bradycardic. No murmur Lungs: Normal effort, clear throughout Abd: soft, nontender, non distended Neuro: alert and oriented x3, no focal deficit Skin: warm and dry Results CBC & Chem 7: 02/24/22 06:27 02/24/22 06:27 Labs: Abnormal Lab Results - Last 24 Hours (Table) 02/24/22 Range/Units 06:27 Chloride 109 H (98-107) mmol/L Thrombosis Risk Factor Assmnt - Choose All That Apply Any of the Below Risk Factors Present?: No Each Risk Factor Represents 2 Points: Age 61-74 years Each Risk Factor Represents 3 Points: Family history of DVT/PE Other congenital or acquired thrombophilia - If yes, enter type in comment: No Thrombosis Risk Factor Assessment Total Risk Factor Score: 5 Thrombosis Risk Factor Assessment Level: High Risk Assessment and Plan Plan: 1. Complete heart block. Cardiology consulted and Echo showing LVEF 50-55%, plan for pacemaker 2. Hypothyroidism. Continue armour thyroid. TSH wnl
[2022-02-25] MEDS: SODIUM CHLORIDE 0.9% 1,000 ML IV SCH (05:19)
[2022-02-25] MEDS: THYROID, PORK 30 MG TAB PO SCH ×3 (06:30→17:13)
--- NOTE | 2022-02-25 07:19 | XR ---
EXAMINATION TYPE: XR chest 2V DATE OF EXAM: 02/25/2022 6:54 AM COMPARISON: Chest radiographs from 02/24/2022. TECHNIQUE: XR chest 2V Frontal and lateral views of the chest. CLINICAL INDICATION:Female, 71 years old with history of Lead placement check; FINDINGS: Lungs/Pleura: There is no evidence of pleural effusion, focal consolidation, or pneumothorax. Pulmonary vascularity: Unremarkable. Heart/mediastinum: Cardiomediastinal silhouette is unremarkable. Two lead cardiac conduction device overlying the left hemithorax with lead tips projecting over the right ventricle and right atrium in stable position. Musculoskeletal: No acute osseous pathology. IMPRESSION: No acute cardiopulmonary disease/process. Stable position of cardiac pacing leads.
[2022-02-25] MEDS ORDERED: HYDROmorphone 0.5 MG/0.5 ML SYRINGE IVP STA (08:27)
[2022-02-25] MEDS: ASPIRIN 81 MG PO SCH (08:31)
[2022-02-25] MEDS: amLODIPine 5 MG TAB PO SCH (08:31)
[2022-02-25 08:36] LABS: Basophils % (A) 1 %; Eosinophils # (A) 0.2 k/uL (0-0.7); Eosinophils % (A) 3 %; HGB 13.8 gm/dL (11.4-16.0); Hypochromasia Slight; Lymphocytes # (A) 1.8 k/uL (1.0-4.8); Lymphocytes % (A) 26 %; MCH 30.4 pg (25.0-35.0); MCHC 31.3 g/dL (31.0-37.0); MCV 97.3 fL (80.0-100.0); Mean Platelet Volume 8.2; Monocytes # (A) 0.3 k/uL (0-1.0); Monocytes % (A) 4 %; Neutrophils # (A) 4.4 k/uL (1.3-7.7); Neutrophils % (A) 65 %; Platelet Count 161 k/uL (150-450); RBC 4.53 m/uL (3.80-5.40); RDW 13.8 % (11.5-15.5); WBC 6.7 k/uL (3.8-10.6)
[2022-02-25 08:49] LABS: African American GFR (CKD) >90 (>60 ml/min/1.73 sqM); Anion Gap 7 mmol/L; Blood Urea Nitrogen 12 mg/dL (7-17); Calcium 9.3 mg/dL (8.4-10.2); Carbon Dioxide 22 mmol/L (22-30); Chloride 108 mmol/L (98-107); Glucose 125 mg/dL (74-99); Non-African American GFR(CKD) 89 (>60 ml/min/1.73 sqM); Potassium 3.9 mmol/L (3.5-5.1); Sodium 137 mmol/L (137-145)
--- NOTE | 2022-02-25 13:20 | CA ---
Transthoracic Echo Report Name: Gino Austin Age: 71 Gender: F : 1950 Exam Date: 02/25/2022 11:39 Exam Location: [place] [facility] Ht (in): 67 Wt (lb): 130 Ordering Physician: Norman Valencia MD ([id number]) Attending/Referring Phys: Wheat Cleaner Erma Gonzalez RDCS Procedure CPT: Indications: pacer Cardiac Hx: Technical Quality: Fair Contrast 1: Total Dose (mL): Contrast 2: Total Dose (mL): MEASUREMENTS (Male / Female) Normal Values FINDINGS Left Ventricle Normal left ventricular systolic function with no obvious regional wall motion abnormalities. Right Ventricle Normal right ventricular size. Right Atrium pacemaker wire in the right atrial cavity. Left Atrium Mitral Valve Aortic Valve Tricuspid Valve Pulmonic Valve Pericardium Minimal pericardial effusion Aorta CONCLUSIONS Small to medium amount of pericardial effusion noted Previewed by: Dr. Asim Son MD (Electronically Signed) Final Date: 25 February 2022 13:19
[2022-02-25] MEDS: ACETAMINOPHEN TAB 325 MG TAB PO PRN ×2 (15:39→23:15)
[2022-02-25] MEDS ORDERED: HYDROmorphone 0.5 MG/0.5 ML SYRINGE IVP PRN (17:12)
--- NOTE | 2022-02-25 18:00 | PN ---
PROGRESS NOTE FOLLOW-UP NOTE: This 71-year-old lady is admitted to hospital with complete heart block and underwent permanent pacemaker. Pacemaker is functioning normally. Chest x-ray is free of any pneumothorax. She complained of some chest discomfort and had undergone a limited echo to rule out pericardial effusion. I am going to review the echo. She is on aspirin, Lipitor, antibiotics. On exam, comfortable at rest. Vital signs are stable. Chest exam reveals good air entry bilaterally. Heart exam reveals first and second heart sounds. No gallop. No murmur. Abdomen is soft. Examination of extremities did not reveal any edema. She does not have any pericardial rub. ASSESSMENT: 1. Complete heart block, status post permanent pacemaker. 2. Chest pain. PLAN: Will continue current measures. Watch her for another day in the hospital. MMODL / IJN: [id number] /
[2022-02-25] MEDS: FAMOTIDINE 20 MG TAB PO SCH (20:37)
[2022-02-26] MEDS: SODIUM CHLORIDE 0.9% 1,000 ML IV SCH ×2 (06:16→21:01)
[2022-02-26] MEDS: THYROID, PORK 30 MG TAB PO SCH ×3 (06:22→17:53)
[2022-02-26] MEDS: amLODIPine 5 MG TAB PO SCH (08:28)
[2022-02-26] MEDS: ASPIRIN 81 MG PO SCH (08:28)
[2022-02-26] MEDS: FAMOTIDINE 20 MG TAB PO SCH ×2 (08:29→21:01)
[2022-02-26] MEDS: ACETAMINOPHEN TAB 325 MG TAB PO PRN ×2 (08:34→23:17)
[2022-02-26] MEDS ORDERED: IBUPROFEN 200 MG TAB PO PRN (10:31)
--- NOTE | 2022-02-26 16:52 | PN ---
PROGRESS NOTE 71-year-old lady was admitted to hospital with high-grade AV block and underwent permanent pacemaker. She initially had some oozing at the incision site and subsequently complained of chest pain due to which we could not discharge her home. On a limited echocardiogram I performed yesterday, she had pericardial effusion that was new compared to an echo done on her initial presentation. She continues to have on and off episodes of chest discomfort but much better compared to yesterday. EXAM: Heart rate is 75 beats per minute. Blood pressure is 123/67, respiratory rate 16, O2 saturation is 96% on room air. There is no pericardial rub. Heart exam reveals first and second heart sounds. No murmur. Exam of extremities did not reveal any edema. Peripheral pulses are felt. LABS: Labs show that the hemoglobin is 13.8, platelet count is 160. Potassium is 3.9, creatinine is 0.6. ASSESSMENT: 1. High-grade AV block status post permanent pacemaker. 2. Postprocedure pericardial effusion with chest discomfort. PLAN: We will treat her pain with Tylenol and Motrin. Repeat an echo tomorrow and if the pericardial effusion is improving and symptoms have resolved, we may be able to discharge her home. MMODL / IJN: [id number] /
--- NOTE | 2022-02-26 20:24 | P.PN ---
Subjective Progress Note Date: 02/25/22 71-year-old female with PMH of hyperlipidemia who was recommended to come into the hospital by her PCP due to heart block. Pt complains she has been experiencing dizziness, fatigue over the past few months. She states more recently she started to notice dyspnea on exertion and lower extremity edema so saw her PCP. She underwent an echocardiogram 2 weeks ago and her heart rate was slow at that time according to her. She was seen yesterday for follow-up and was found to be in complete heart block and referred to the emergency room. The patient has symptoms of dizziness and presyncope, no chest discomfort. TSH was normal on presentation. In the emergency room she was noted to be in complete heart block with ventricular rate in the mid 30s and stable blood pressure. Objective - Vital Signs Vital signs: Vital Signs Temp 98.0 F 02/25/22 08:00 Pulse 63 02/25/22 08:00 Resp 16 02/25/22 08:00 BP 159/78 02/25/22 08:00 Pulse Ox 98 02/25/22 08:00 FiO2 Intake & Output 02/24/22 02/25/22 02/25/22 18:59 06:59 18:59 Intake Total 1220 118 Output Total 800 600 Balance 420 -600 118 Intake: IV 180 Intake, IV Titration 300 Amount Sodium Chloride 0.9% 1, 300 000 ml @ 50 mls/hr IV . Q20H [facility] Rx#:[id number] Oral 740 118 Output: Urine 800 600 Other: Voiding Method External Catheter External Catheter External Catheter - Exam Gen: well developed, well nourished female in NAD HEENT: NC/AT, mucus membranes moist Neck: supple, no JVD or thyromegaly CV: Regular, bradycardic. No murmur Lungs: Normal effort, clear throughout Abd: soft, nontender, non distended Neuro: alert and oriented x3, no focal deficit Skin: warm and dry - Labs CBC & Chem 7: 02/25/22 07:45 02/25/22 07:45 Labs: Abnormal Lab Results - Last 24 Hours (Table) 02/25/22 Range/Units 07:45 Chloride 108 H (98-107) mmol/L Glucose 125 H (74-99) mg/dL Assessment and Plan Assessment: 1. Complete heart block, going on for maybe 2 weeks according to the patient 2. History of hyperlipidemia 3. History of hypothyroidism, normal TSH 4. Elevated bilirubin of unknown duration, no abdominal pain Plan: 1. Obtain an echocardiogram with Doppler 2. Proceed with permanent pacemaker implantation 3. The rationale behind the pacemaker and the risks and the complications were discussed with the patient 4. Depending on her progress further recommendations will be made
--- NOTE | 2022-02-26 20:26 | P.PN ---
Subjective Progress Note Date: 02/26/22 Principal diagnosis: Complete heart block; status post permanent pacemaker implantation; POD #2 71-year-old female with PMH of hyperlipidemia who was recommended to come into the hospital by her PCP due to heart block. Pt complains she has been experienc ing dizziness, fatigue over the past few months. She states more recently she started to notice dyspnea on exertion and lower extremity edema so saw her PCP. She underwent an echocardiogram 2 weeks ago and her heart rate was slow at that time according to her. She was seen yesterday for follow-up and was found to be in complete heart block and referred to the emergency room. The patient has symptoms of dizziness and presyncope, no chest discomfort. TSH was normal on presentation. In the emergency room she was noted to be in complete heart block with ventricular rate in the mid 30s and stable blood pressure. 02/26/2022 Patient is seen and evaluated sitting up in bedside chair; denies any further complaints of chest pain Echocardiogram completed yesterday reveals pericardial effusion which is new compared to initial echo Patient is status post permanent pacemaker implantation for high grade AV block with postprocedure pericardial effusion and chest discomfort; cardiology on board and recommending to repeat echocardiogram tomorrow to follow-up on pericardial effusion and to monitor for resolution of chest pain Objective - Vital Signs Vital signs: Vital Signs Temp 98.7 F 02/26/22 08:27 Pulse 73 02/26/22 16:06 Resp 16 02/26/22 16:06 BP 142/66 02/26/22 16:06 Pulse Ox 97 02/26/22 16:06 FiO2 Intake & Output 02/25/22 02/26/22 02/26/22 18:59 06:59 18:59 Intake Total 457 350 339 Output Total 900 Balance 457 -550 339 Intake: Oral 457 350 339 Output: Urine 900 Other: Voiding Method Bedside Commode Bedside Commode # Voids 1 # Bowel Movements 1 - Exam Gen: well developed, well nourished female in NAD HEENT: NC/AT, mucus membranes moist Neck: supple, no JVD or thyromegaly CV: Regular, bradycardic. No murmur Lungs: Normal effort, clear throughout Abd: soft, nontender, non distended Neuro: alert and oriented x3, no focal deficit Skin: warm and dry - Labs CBC & Chem 7: 02/25/22 07:45 02/25/22 07:45 Assessment and Plan Assessment: 1. Complete heart block, going on for maybe 2 weeks according to the patient 2. History of hyperlipidemia 3. History of hypothyroidism, normal TSH 4. Elevated bilirubin of unknown duration, no abdominal pain Plan: 1. Obtain an echocardiogram with Doppler 2. Proceed with permanent pacemaker implantation 3. The rationale behind the pacemaker and the risks and the complications were discussed with the patient 4. Depending on her progress further recommendations will be made
[2022-02-27 06:02] VITALS: RESP 16
[2022-02-27] MEDS: THYROID, PORK 30 MG TAB PO SCH ×2 (06:08→11:54)
[2022-02-27] MEDS: amLODIPine 5 MG TAB PO SCH (08:19)
[2022-02-27] MEDS: FAMOTIDINE 20 MG TAB PO SCH (08:19)
[2022-02-27 08:28] VITALS: TEMP 98.1
[2022-02-27] MEDS: ACETAMINOPHEN TAB 325 MG TAB PO PRN (08:31)
[2022-02-27] MEDS ORDERED: COLCHICINE 0.6 MG EACH PO SCH (09:00)
[2022-02-27 12:01] VITALS: BP 155/75; PULSE 70
--- NOTE | 2022-02-27 12:10 | P.PN ---
Subjective The patient is a 71-year-old female with known history of hyperlipidemia, thyroid disorder. She does not follow with a biostatistician prior to this. We are following the past for 3rd degree AV Block. She presented to the hospital secondary to last few weeks has been complaining of progressive fatigue, lack of energy and was found to be bradycardic. She was seen yesterday for follow-up appointment and was found to be in complete heart block and referred to the emergency room. The patient has symptoms of dizziness and presyncope. No prior cardiac history of myocardial infarction or CHF. She was on no negative chronotropic drugs and her TSH was normal on presentation. In the emergency room she was noted to be in complete heart block with ventricular rate in the mid 30s. Patient underwent dual chamber pacemaker implantation with Dr. Valencia on 02/24/2022. Post operatively patient found to have pericardial effusion. 02/27/2022 Patient see and examined at bedside, no acute distress. Ambulating in room and halls with no difficulty. She is feeling well. She denies any chest pain or shortness of breath. She has some mild tight feeling in her left rib/under left breast with some radiation to her back she states has improved. Her vitals are stable. Device is functioning normally. Meds: amlodipine 5mg daily, atorvastatin 40mg , colchicine 0.6mg BID GENERAL: Well-appearing, well-nourished and in no acute distress. NECK: Supple without JVD LUNGS: Breath sounds clear to auscultation bilaterally. Respiration equal and unlabored. No wheezes, rales or rhonchi. HEART: Regular rate and rhythm without murmurs, rubs or gallops. S1 and S2 heard. EXTREMITIES: Normal range of motion, no edema. No clubbing or cyanosis. Peripheral pulses intact. ASSESSMENT Complete heart block Status post pacemaker implantation on 02/24/2022 Post operative pericardial effusion/pericarditis History of hyperlipidemia History of hypothyroidism, normal TSH PLAN Limited echocardiogram today to assess pericardial effusion, reviewed at bedside by Dr. Son. Ok to discharge today from a cardiology perspective today Continue colchicine On discharge follow up in the office in 1 week. Nurse Practitioner note has been reviewed, I agree with a documented findings and plan of care. Patient was seen and examined. Objective - Vital Signs Vital signs: Vital Signs Temp 98.7 F 02/26/22 08:27 Pulse 73 07/24/22 16:06 Resp 16 02/26/22 16:06 BP 142/66 02/26/22 16:06 Pulse Ox 97 02/26/22 16:06 FiO2 Intake & Output 02/26/22 02/26/22 02/27/22 06:59 18:59 06:59 Intake Total 350 579 Output Total 900 Balance -550 579 Intake: Oral 350 579 Output: Urine 900 Other: Voiding Method Bedside Commode # Bowel Movements 1 - Labs CBC & Chem 7: 02/25/22 07:45 02/25/22 07:45
--- NOTE | 2022-02-27 17:09 | CDI ---
Documentation Clarification Form Date: 02/27/2022 04:48:36 PM From: Raegan Lira RN CCDS Admit Date: 02/23/2022 06:01:00 PM Patient Name: Gino Austin Visit Number: [id number] Discharge Date: ATTENTION: The Clinical Documentation Specialists (CDI) and [facility] Coding Staff appreciate your assistance in clarifying documentation. Please respond to the clarification below the line at the bottom and electronically sign. The CDI & [facility] Coding staff will review the response and follow-up if needed. Please note: Queries are made part of the Legal Health Record. If you have any questions, please contact the author of this message via ITS. Dr. Asim Son Post procedure pericardial effusion is documented 02/26, Cardiology Progress note and patient had Dual chamber pacemaker implantation, 02/24. Additional clarification is requested regarding the relationship, if any, that exists between the diagnosis and the procedure. Patients Admitting Diagnosis: Complete heart block with syncope / near syncope Post-Operative Diagnosis: Complete heart block with syncope / near syncope Procedure performed: Dual chamber permanent pacemaker implantation History/Risk Factors: 71-year-old female has been complaining of progressive fatigue, lack of energy and was found to be bradycardic. Was seen for a follow up and was referred to ED for complete heart block. Medical History: HLD and Hypothyroidism 02/24, H&P. Clinical Indicators: 02/25, VSS: B/P 159/78; HR 72; Temp 98.0; RR 16; SpO2 98% ra 02/23, EKG: Sinus rhythm with high grade AV block. Moderate ST depression 02/24, ECHO: No pericardial effusion 02/25, ECHO: Small to medium amount of pericardial effusion noted. 02/25,Cardiology PN: She complained of some chest discomfort and had undergone a limited echo to rule out pericardial effusion. Treatment: 02/25 Transthoracic Echo,02/27 Echo / portable What relationship, if any, exists between the diagnosis of pericardial effusion and the procedure: [ x ] Pericardial effusion is a complication of surgical procedure [ ] Pericardial effusion is related to patients co-morbid condition(s) of [insert co-morbid dxs] & not a complication of the procedure [ ] Other please specify ____ [ ] Unable to determine (Template Last Revised: October 2020) MTDD
--- NOTE | 2022-02-27 17:20 | CDI ---
Documentation Clarification Form Date: 02/27/2022 05:10:01 PM From: Raegan Lira RN CCDS Admit Date: 02/23/2022 06:01:00 PM Patient Name: Gino Austin Visit Number: [id number] Discharge Date: ATTENTION: The Clinical Documentation Specialists (CDI) and [facility] Coding Staff appreciate your assistance in clarifying documentation. Please respond to the clarification below the line at the bottom and electronically sign. The CDI & [facility] Coding staff will review the response and follow-up if needed. Please note: Queries are made part of the Legal Health Record. If you have any questions, please contact the author of this message via ITS. Dr. Asim Son Post operative pericardial pericarditis is documented 02/27, Cardiology consult which may lack sufficient clinical evidence/support in the medical record. Additional clarification is requested. History/Risk Factors: 71-year-old female presents to the ED from her PCP office due to Heart block. Medical History: HLD and Hypothyroid. 02/24, H&P. Clinical Indicators: 02/25, VSS: B/P 159/78; HR 72; Temp 98.0; RR 16; SpO2 98% ra 02/23, EKG: Sinus rhythm with high grade AV block. Moderate ST depression 02/24, ECHO: No pericardial effusion 02/25, ECHO: Small to medium amount of pericardial effusion noted. 02/25,Cardiology PN: She complained of some chest discomfort and had undergone a limited echo to rule out pericardial effusion. 02/27, Cardiology PN: Post operative pericardial effusion / pericarditis Treatment: 02/25 Transthoracic Echo, 02/26 Advil 200mg PO Q4HR, 02/27 Colchicine 0.6mg PO BID [place].02/27 Echo / portable Please clarify if pericarditis is a valid diagnosis? [ ] Yes, pericarditis is present as evidence by (additional clinical support): [ x ] No, pericarditis is ruled out [ ] Other (please specify diagnosis) [ ] Unable to determine (Template Last Revised: October 2020) MTDD
--- NOTE | 2022-03-06 09:27 | P.DS ---
Providers Date of admission: 02/23/22 18:01 Expected date of discharge: 02/27/22 Attending physician: Lc Farley MD Consults: 02/23/22 18:00 Consult Physician Urgent Consulting Provider: [facility] Consult Reason/Comments: third degree heart block Do you want consulting provider notified?: Already Contacted Primary care physician: [facility] Hospital Course: Pt is a 71-year-old female with PMH of hyperlipidemia who was recommended to come into the hospital by her PCP due to heart block. Pt complains she has been experiencing dizziness, fatigue over the past few months. She states more recently she started to notice dyspnea on exertion and lower extremity edema so saw her PCP. She underwent an echocardiogram 2 weeks ago and her heart rate was slow at that time according to her. She was seen yesterday for follow-up and was found to be in complete heart block and referred to the emergency room. The patient has symptoms of dizziness and presyncope, no chest discomfort. TSH was normal on presentation. In the emergency room she was noted to be in complete heart block with ventricular rate in the mid 30s and stable blood pressure. Pt evaluated by Cardiology and recommended pacemaker implantation. She underwent this with subsequent echo showing normal LVEF and trace effusion. She was given colchicine and the effusion resolved. She is recommended to follow up with her PCP and [facility] as an outpatient. Patient Condition at Discharge: Serious Plan - Discharge Summary Discharge Rx Participant: No New Discharge Prescriptions: New Colchicine [Colcrys] 0.6 mg PO BID #60 each Continue Atorvastatin Calcium [Lipitor] 40 mg PO TH@2100 Thyroid,Pork [[place] Thyroid] 15 mg PO BID@0600,1800 Thyroid,Pork [[place] Thyroid] 30 mg PO DAILY@1200 Discontinued Aspirin EC [Ecotrin Low Dose] 81 mg PO DAILY Discharge Medication List Atorvastatin Calcium [Lipitor] 40 mg PO TH@2100 04/19/19 [History] Thyroid,Pork [[place] Thyroid] 15 mg PO BID@0600,1800 04/19/19 [History] Thyroid,Pork [[place] Thyroid] 30 mg PO DAILY@1200 02/23/22 [History] Colchicine [Colcrys] 0.6 mg PO BID #60 each 02/27/22 [Rx] Follow up Appointment(s)/Referral(s): Rajat Marin MD [STAFF PHYSICIAN] - 1 Week (Office to call with appointment date and time.) Serina Wooten MD [Primary Care Provider] - 03/02/22 11:30 am ([facility] office) Patient Instructions/Handouts: Pacemaker (DC) Activity/Diet/Wound Care/Special Instructions: Activity Restrictions or Additional Instructions: Instructions following a heart rhythm device implant. 1. Keep dressing dry for 5 days. You lexie cover the area with surrounding with a clean dressing/wrap prior to shower 2. The dressing can be removed in about 5 days in the Device Clinic at [facility]. Absorbable sutures were used to close the wound. 3. Avoid raising the left arm above the shoulder level. 4 week resection. 4. Avoid arm movements such as back scratching, rubbing the head or pulling on a cord. 4 week for striction. 5. Gentle range of motion movements of the shoulder, closest institution should be performed to avoid a frozen shoulder. (Pendulum exercises of the shoulder) 6. The opposite arm may be used freely. 7. Avoid driving for 7 days. 8. Avoid activities such as golfing, swimming, weed whacking, lifting more than 10 pounds of weight, bowling, and weight training/lifting (6 week restriction) 9. Being close to home induction cooktops and activities such as wood chopping with axe, pull ups, power lifting will always be a problem 10. Arm sling is only remind her not to raise arm above the head. You do not need to keep the arm completely immobilized. You're free to move the arm and use it in normal activities. In case of any problems, please call [facility] at [phone] Attention: Device Clinic Device clinic follow up in 5 days Follow up with your primary environmental aide afterwards Discharge Disposition: HOME SELF-CARE
== END 2022-02-27 17:25 | disposition home or self-care (01) | DRG 243 ==
LOC: EC 16:33 → 2SICU 18:01 → 3SCARD 02-24 17:51
PROVIDERS: ADMIT Family Medicine; ATTEND Family Medicine
PROC: 02H63JZ Insertion of Pacemaker Lead into Right Atrium, Percutaneous Approach (ICD-10-PCS; principal; 2022-02-24 14:45)
PROC: 02HL3JZ Insertion of Pacemaker Lead into Left Ventricle, Percutaneous Approach (ICD-10-PCS; principal; 2022-02-24 14:45)
PROC: 0JH606Z Insertion of Pacemaker, Dual Chamber into Chest Subcutaneous Tissue and Fascia, Open Approach (ICD-10-PCS; principal; 2022-02-24 14:45)
DX: I44.2 Atrioventricular block, complete (principal); I31.3 Pericardial effusion (noninflammatory); R17 Unspecified jaundice; E03.9 Hypothyroidism, unspecified; E78.5 Hyperlipidemia, unspecified; I49.5 Sick sinus syndrome; Z79.82 Long term (current) use of aspirin; Z82.3 Family history of stroke
CPT/HCPCS: 33208; 36415; 71045; 71046; 80048; 80053; 83735; 84443; 84484; 85025; 85610; 85730; 93005; 93306; 93308; 99285